=== PATIENT | female | born 1965 | race African-American/Black ===

== ENCOUNTER → 2017-02-01 | Outpatient (CLI) | payer OTHER ==
[~2017-02-01] MED LIST: ASPIRIN81 M2 PO; FISH OIL 1,0001 CA2 PO; HCTZ PO
--- NOTE | ~2017-02-01 | CR97 ---
[facility] A Service of [facility] RADIOLOGY TEXT RESULTS PATIENT: JUDY SALMERON LOCATION: [facility] : 65 UNIT #: [id number] AGE: [address]: Charan Bravo III, MD SEX: F ORDER DR: [id number] [facility] [address]. [place], [place] [address] [id number] O MR#: [id number] Acc #: [id number] NAME: JUDY SALMERON : 1965 SEX: F STUDY DATE/TIME: 02/01/2017 11:13 UNIT: [facility] ROOM: STUDY DESCRIPTION: CR Esophagram Attending Physician: Charan Bravo III, M.D. Referring Physician: Charan Bravo III, M.D. Ordering Physician: Charan Bravo III, M.D. MEDICAL IMAGING REPORT This report is preliminary unless electronic signature is present EXAM Single contrast barium esophagram HISTORY 51-year-old lady who has a history of a LAP band, which was placed 2012. She reports she has been having some problems with nausea and vomiting for 2 months. She has had some fluid removed from the band. TECHNIQUE Patient was administered thin barium and multiple fluoroscopic images were obtained. FINDINGS On the initial ceramic tile mechanic image, the patient shows a Phi angle of roughly 42 degrees, which is not significantly changed when compared to her initial postoperative study. Bowel gas pattern appeared unremarkable. Patient was subsequently administered thin barium. Patient's esophagus appeared mildly patulous, although the pouch itself did not appear frankly dilated. With the initial swallow, contrast passed promptly into the remainder of the stomach and this area really did not appear particularly narrowed. However, on subsequent images, there is poor stripping of the esophagus with pooling of contrast within the pouch. There is relative stasis here. Ultimately, patient was administered some water. Eventually, all of the contrast passed into the stomach. Total fluoroscopy time was 0.5 minutes and a total of 19 fluoroscopic images were obtained. IMPRESSION While on the initial images contrast passed promptly from the gastric pouch into the remainder of the stomach and while this area did not appear particularly narrowed, on subsequent images patient did have pooling of contrast within the distal esophagus and pouch with some stasis noted. This eventually resolved after the administration of some water but again, there was some stasis between the pouch and the remainder of the stomach. [facility] A Service of [facility] / [facility] RADIOLOGY TEXT RESULTS PATIENT: JUDY SALMERON LOCATION: [facility] : 65 UNIT #: [id number] AGE: [address]: Charan Bravo III, MD SEX: F ORDER DR: I suspect this reflects at least some mild functional obstruction, despite the relatively open appearance of the channel. No evidence of laparoscopic gastric band slippage was seen. Dictated by... Pippa Ca M.D. THIS IS AN ELECTRONICALLY VERIFIED REPORT Pippa Ca M.D. at 02/03/2017 4:45 PM AFF/pcl TD: 02/02/2017 23:31 JOB #: [id number] MEDICAL IMAGING REPORT Page 1 of 1 COPY
== END | disposition home or self-care (01) ==
LOC: CRAD 10:36
DX: R13.10 Dysphagia, unspecified (principal)
CPT/HCPCS: 74220